=== PATIENT | male | born 2000 | race Caucasian/White ===

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

== ENCOUNTER 2018-02-25 06:00 | Emergency (ER) | payer OTHER ==
[2018-02-25] MEDS ORDERED: predniSONE TAB* 20 MG PO ONE (06:13)
[2018-02-25] MEDS ORDERED: hydrOXYzine HCL TAB* 50 MG PO ONE (06:13)
--- NOTE | 2018-02-25 06:16 | ED ---
Allergic Reaction/Systemic - HPI Summary HPI Summary: Pt is a 17 year old M presenting to the ED with a chief complaint of an allergic reaction. He is allergic to fish and he ate fish this morning about an hour ago. The pt reports throat swelling and difficulty breathing. The pt denies itching or pain. - History of Current Complaint Chief Complaint: EDAllergicReaction Time Seen by Provider: 02/25/18 06:10 Hx Obtained From: Patient Onset/Duration: Sudden Onset, Started hours ago Timing: Constant, Lasting Hours Severity Initially: Mild Severity Currently: Mild Pain Intensity: 0 Pain Scale Used: 0-10 Numeric Character: Swelling - in throat Aggravating Factor(s): Nothing Alleviating Factor(s): Nothing Associated Signs And Symptoms: Positive: Difficulty Breathing, Throat Tightening - Allergies/Home Medications Allergies/Adverse Reactions: Allergies Allergy/AdvReac Type Severity Reaction Status Date / Time Fish Containing Products Allergy Anaphylatic Verified 06/10/17 19:36 Shock PMH/Surg Hx/FS Hx/Imm Hx Previously Healthy: Yes Endocrine/Hematology History: Denies: Hx Diabetes Cardiovascular History: Denies: Hx Hypertension Infectious Disease History: No Infectious Disease History: Denies: Traveled Outside the [place] in Last 30 Days - Family History Known Family History: Negative: Renal Disease - Social History Alcohol Use: Occasionally Substance Use Type: Reports: None Smoking Status (MU): Never Smoked Tobacco Review of Systems Negative: Fever Positive: Other - throat feels like it's closing Positive: Shortness Of Breath All Other Systems Reviewed And Are Negative: Yes Physical Exam - Summary Physical Exam Summary: VITAL SIGNS: Reviewed. GENERAL: Patient is a well-developed and nourished male who is lying comfortable in the stretcher. Patient is not in any acute respiratory distress. HEAD AND FACE: No signs of trauma. No ecchymosis, hematomas or skull depressions. No sinus tenderness. EYES: PERRLA, EOMI x 2, No injected conjunctiva, no nystagmus. EARS: Hearing grossly intact. Ear canals and tympanic membranes are within normal limits. MOUTH: Oropharynx within normal limits. NECK: Supple, trachea is midline, no adenopathy, no JVD, no carotid bruit, no c- spine tenderness, neck with full ROM. CHEST: Symmetric, no tenderness at palpation LUNGS: Clear to auscultation bilaterally. No wheezing or crackles. CVS: Regular rate and rhythm, S1 and S2 present, no murmurs or gallops appreciated. ABDOMEN: Soft, non-tender. No signs of distention. No rebound no guarding, and no masses palpated. Bowel sounds are normal. EXTREMITIES: FROM in all major joints, no edema, no cyanosis or clubbing. NEURO: Alert and oriented x 3. No acute neurological deficits. Speech is normal and follows commands. SKIN: Dry and warm Triage Information Reviewed: Yes Vital Signs On Initial Exam: Initial Vitals Temp Pulse Resp BP Pulse Ox 97.3 F 76 16 113/90 99 02/25/18 06:01 02/25/18 06:01 02/25/18 06:01 02/25/18 06:01 02/25/18 06:01 Vital Signs Reviewed: Yes Diagnostics - Vital Signs Vital Signs Temp Pulse Resp BP Pulse Ox 02/25/18 06:01 97.3 F 76 16 113/90 99 - Laboratory Lab Statement: Any lab studies that have been ordered have been reviewed, and results considered in the medical decision making process. Allergic Reaction Course/Dx - Course Course Of Treatment: The pt is a 17 year old M presenting to the ED with an allergic reaction. He ate fish about an hour [employer] and he is allergic to fish. The pt reports his throat swelling and difficulty breathing. The pt denies itchiness or pain. - Diagnoses Provider Diagnoses: Allergic reaction Discharge - Sign-Out/Discharge Documenting (check all that apply): Patient Departure - Discharge Plan Condition: Stable Disposition: HOME Prescriptions: hydrOXYzine HCL TAB* [Atarax 25 MG TAB*] 25 mg PO QID PRN #20 tab PRN Reason: Allergy Symptoms predniSONE TAB* [Deltasone 20 MG TAB*] 40 mg PO DAILY #6 tab Referrals: No Primary Care Phys,NOPCP [Primary Care Provider] - - Attestation Statements Document Initiated by Scribe: Yes Documenting Scribe: Johanna Riggs Provider For Whom William is Documenting (Include Credential): Michelle Julio MD. Scribe Attestation: Johanna Schultz, scribed for Michelle Julio MD. on 02/25/18 at 0643. Status of Scribe Document: Ready
[2018-02-25 06:55] VITALS: BP 116/74
== END 2018-02-25 06:55 | disposition home or self-care (01) ==
LOC: ED 06:00
DX: T78.1XXA Other adverse food reactions, not elsewhere classified, initial encounter (principal); R07.0 Pain in throat; R06.00 Dyspnea, unspecified; X58.XXXA Exposure to other specified factors, initial encounter; Z91.013 Allergy to seafood
CPT/HCPCS: 99282; A9270-GY; J7512